=== PATIENT | female | born 1955 | race Caucasian/White ===

== ENCOUNTER → 2019-01-20 | Outpatient (CLI) | payer OTHER ==
[~2019-01-20] MED LIST: BLOOD PRESSURE MEDS; HYDROCODONE-AP1 EAC6 PO; LEVOTHYROXIN0.075 MG PO; LIPITOR80 MG PO; NAPROSYN500 MG PO; NEXIUM40 M1 PO; NORCO 5-325 TA1 EACH PO; ULTRAM 50MG TAB50 MG PO; VENTOLIN HFA 1818 GM INH
--- NOTE | 2019-01-20 12:23 | EXE ---
[facility] [place] [address] STRESS ECHOCARDIOGRAM Name: DIMITRYNIKA René Room #: [facility]#: [id number] Admission: 01/20/19 Attend Phys: Michael Vieira, Discharge: Date of : 53 Date of Service: 01/20/19 1223 Report #: [id number] THIS REPORT FOR: //name// APPROVED REPORT Study performed: 01/20/2019 08:22:15 Exam: Stress Echocardiogram Indication: Dyspnea Patient Location: Out-Patient Stress Nurse: Keely Baron RN Status: routine Ht: 5 ft 6 in HR: 83 bpm BP: 134/78 mmHg Rhythm: NSR Medical History Medications: Listed on worksheet Allergies: Shellfish Cardiac Risk Factors: HTN, Hyperlipidemia, FHX of CAD Procedure The patient underwent an Exercise Stress Test using the Everette Protocol. Blood pressure, heart rate, and EKG were monitored. An Echocardiogram was performed by emissions technician in four stages in quad fashion. At peak stress, four selected images were obtained and placed side by side with resting images for comparison. Stress Test Details Stress Test: Exercise stress testing was performed using a Everette protocol. HR Resting HR: 83 bpm Max Heart Rate (APMHR): 156 bpm Max HR Achieved: 146 bpm Target HR (85% APMHR): 132 bpm % of APMHR: 93 Recovery HR: 93 bpm HR response to stress: Normal HR response to stress BP Resting BP: 134/78 mmHg Max BP: 186/80 mmHg Recovery BP: 140/80 mmHg BP response to stress: Normal blood pressure response to stress. [facility] [address] [place] [address] STRESS ECHOCARDIOGRAM Name: NIKA MORAES Room #: REG [facility]#: [id number] Admission: 01/20/19 Attend Phys: Michael Vieira, Discharge: Date of : 53 Date of Service: 01/20/19 1223 Report #: [id number] ECG Resting ECG: Sinus Rhythm Stress ECG: Sinus Tachycardia ST Change: Normal Maximum ST Deviation: 0 mm Arrhythmia: None Recovery ECG: Sinus Rhythm Recovery ST Change: Normal Recovery ST Deviation: 0 mm Recovery Arrhythmia: None Clinical Reason for Termination: Maximal effort Stress Symptoms: Leg Fatigue, lightheadedness Exercise duration: 7 min 18 sec Highest Stage Achieved: Stage 3: 3.4 mph at 14% grade. Exercise capacity: 10.10 METs Angina Score: None ry. Stress ECG Conclusion Clinical: Non-ischemic ECG: Non-ischemic Choi Treadmill Score is 7.0 which is Low risk. Pre-Stress Echo The resting Echocardiogram showed normal left ventricular contractility with an estimated Ejection Fraction of about 60-65%. The resting echocardiogram demonstrated normal wall motion in all wall segments. Aortic valve is calcified. Peak velocity of 2.2m/s with a peak pressure gradient of 19mmHg and a mean of 12mmHg. VÍCTOR by continuity equation is 2.3cm2. Post-Stress Echo The stress Echocardiogram showed normal left ventricular contractility with an estimated Ejection Fraction of about 65-70%. Compared to rest, there were no stress-induced wall motion abnormalities. Conclusion Clinical Response: Non-ischemic Exercise Capacity: Average Stress ECG Response: Non-ischemic Stress Echo Images: Non-ischemic The left ventricle is normal in size and wall thickness in both the [facility] [address] [place] [address] STRESS ECHOCARDIOGRAM Name: NIKA MORAES René Room #: [facility]#: [id number] Admission: 01/20/19 Attend Phys: Michael Vieira, Discharge: Date of : 53 Date of Service: 01/20/19 1223 Report #: [id number] rest and stress images. Normal stress echocardiogram with maximal exercise stress. Mildly calcified, mildly stenotic aoritc valve. Other Information Study Quality: Adequate Technically limited study due to breast implants. <Conclusion> The left ventricle is normal in size and wall thickness in both the rest and stress images. Normal stress echocardiogram with maximal exercise stress. Mildly calcified, mildly stenotic aoritc valve. <ELECTRONICALLY SIGNED> By: Michael Vieira MD, [facility] 01/20/19 1223 122 1223 Michael Vieira MD, FACC /INF
== END ==
LOC: CV 06:58
DX: R06.00 Dyspnea, unspecified (principal)

== ENCOUNTER → 2020-01-17 | Outpatient (CLI) | payer OTHER | LOC: SJCVC 14:04 | PROVIDERS: ATTEND Internal Medicine | DX: I10 Essential (primary) hypertension (principal); E78.5 Hyperlipidemia, unspecified; R00.2 Palpitations; Z79.899 Other long term (current) drug therapy; Z87.891 Personal history of nicotine dependence ==

== ENCOUNTER → 2020-02-13 | Outpatient (CLI) | payer OTHER | LOC: LAB 08:38 | PROVIDERS: ATTEND Family Medicine | DX: Z20.828 Contact with and (suspected) exposure to other viral communicable diseases (principal) ==

== ENCOUNTER → 2020-07-17 | Outpatient (CLI) | payer OTHER | LOC: SJCVC 14:00 | PROVIDERS: ATTEND Internal Medicine | DX: I10 Essential (primary) hypertension (principal); E78.5 Hyperlipidemia, unspecified; R00.2 Palpitations; Z90.710 Acquired absence of both cervix and uterus; Z98.890 Other specified postprocedural states; Z88.8 Allergy status to other drugs, medicaments and biological substances; Z79.899 Other long term (current) drug therapy; Z87.891 Personal history of nicotine dependence; Z82.49 Family history of ischemic heart disease and other diseases of the circulatory system ==

== ENCOUNTER → 2021-07-28 | Outpatient (CLI) | payer OTHER | LOC: SJCVC 15:22 | PROVIDERS: ATTEND Internal Medicine | DX: I10 Essential (primary) hypertension (principal); E78.5 Hyperlipidemia, unspecified; R00.2 Palpitations; F17.210 Nicotine dependence, cigarettes, uncomplicated; Z82.49 Family history of ischemic heart disease and other diseases of the circulatory system; Z72.89 Other problems related to lifestyle; Z88.8 Allergy status to other drugs, medicaments and biological substances; Z79.899 Other long term (current) drug therapy ==